=== PATIENT | female | born 1965 | race Caucasian/White ===

== ENCOUNTER 2019-03-28 13:53 | Outpatient (CLI) | payer MEDICAID, SELFPAY ==
[2019-03-28] MEDS: denosumab 60 mg SDV SUBCUT (14:50)
--- NOTE | 2019-03-31 21:04 | ONC FU_ITS ---
Dr. Bonner Patient Follow-Up Note Patient: Catherine Phillips Unit #: [id number]: [id number] Dicatated By: Phill Bonner M.D.Date of Visit:Mar 28, 2019 Onc Med Follow-up/Prog Note Chief Complaint: Breast cancer. History of Present Illness: This is a 53 year-old woman with grade 3 infiltrating ductal carcinoma of the left breast, stage IIB (T2, pN1mi, M0), ER positive/UT negative and HER-2/yoselin positive (3+ by IHC). She had presented with a lump in the left breast. Her initial evaluation included bilateral mammogram and limited ultrasound of the left breast on 06/02/2016. Mammogram showed a somewhat rounded circumscribed mass within the slightly superior and retroareolar left breast measuring 1.0 x 1.0 x 1.9 cm. There was associated retraction of the nipple. Ultrasound showed an irregular spiculated heterogeneous hypochromic and hypervascular mass measuring 1.0 x 1.1 x 1.8 cm located within the 6:00 position of the left breast 2 cm from the nipple. Targeted ultrasound of the left axilla showed no suspicious lymph nodes. Overall, the findings were BI-RADS 5, highly suspicious. She underwent ultrasound directed needle biopsy of the left breast mass on 07/15/2016. Pathology showed grade 2 invasive ductal carcinoma which was ER positive (60% of tumor cells showing moderate intensity staining). The UT was negative at less than 1%. HER-2/yoselin was positive, 3+ by IHC. She was seen by Dr. Shaheen López in [place] on 08/04/2016. After reviewing treatment options, the decision was made to proceed with mastectomy and axillary sentinel lymph node biopsy, as she did not appear to be a good candidate for breast conservation. He had requested cardiology consultation for cardiac clearance prior to the surgery, which did result in some delay in her surgery. Ultimately she did undergo left mastectomy with axillary sentinel lymph node biopsy on 12/23/2016. Pathology showed grade 3 invasive ductal carcinoma measuring 2.8 cm in maximum dimension. The closest margin was the deep margin at 0.4 cm. There was associated ductal carcinoma in situ, grade 3 with comedonecrosis, the largest focus measuring 1.5 cm. The axillary sentinel lymph node biopsy showed 1 lymph node which contained micrometastasis, size of the largest metastatic deposit measuring 1 mm. At that time she also underwent placement of Port-A-Cath venous access device. She began adjuvant TCH chemotherapy, cycle 1 day 1 on 01/17/2017. Side effects included fatigue and painful neuropathy in the lower extremities. She also had severe neutropenia, but with uneventful recovery. Due to the neuropathy and neutropenia, she received a dose reduction with cycle 2 on 02/09/2017. She had increased toxicities despite the dose reduction, severe enough that we opted not to attempt any further chemotherapy. She did agree to continue her Herceptin therapy, and she received cycle 1 of single agent Herceptin on 03/28/2017. Her cycle 2 was delayed, again because of compliance issues, but she did receive cycle 3 on schedule on 05/29/2017. She then continued her single agent Herceptin at the 3-week dosing schedule. She completed her 12th cycle treatment on 12/12/2017. As of May 2017 she also had started adjuvant hormonal therapy with anastrozole 1 mg daily. Her screening DEXA scan on 06/12/2017 had shown a T score of -1.5 the lumbar spine, -1.7 in the left proximal femur and -1.7 in the right proximal femur, consistent with osteopenia. She began treatment with Prolia in March 2018. Her medical history is otherwise significant for hypertension, borderline diabetes, valvular heart disease, asthma, and GERD. She is 4/para 4 with her first at age 19. She underwent natural menopause at age 48. She had no hormone replacement therapy. She is a nonsmoker. INTERIM HISTORY: She is seen for a scheduled visit. She complains that she has been feeling real tired. She is still doing light work. ECOG score is 1. Appetite has been good. She thinks she may have had some fever. She recently has had bad sweating. Since she has had persistent sinus drainage and cough. She says her throat feels like it is blocked off. She is having associated nausea. She has some shortness of breath. She has had a little bit of chest pain off and on. Her bowels fluctuate between constipation and diarrhea. She has urinary frequency and urgency. She is having heavy bone pain all over. She had tried working, but she quit because of pain in her wrists and other joints. She has headache off and on. She has had a few dizzy spells. She has no focal neurologic symptoms. Medications: Anastrozole 1 Tablet (of 1 mg) Oral daily, Citalopram Hydrobromide 1 (20 mg) Tablet Oral daily, Imdur 0.5 (30 mg) Tablet SR 24 HR Oral daily, Lisinopril 1 (20 mg) Tablet Oral daily, Loratadine 1 (10 mg) Tablet Oral every am, Meloxicam 1 Tablet (of 7.5 mg) Oral daily, Propranolol HCl 1 (40 mg) Tablet Oral b.i.d., Protonix 1 Tablet (of 40 mg) Tablet, enteric coated Oral daily, Singulair 1 (10 mg) Tablet Oral at bedtime, Symbicort 2 (80-4.5 mcg/act) Aerosol Inhalation b.i.d. Allergies: EPINEPHrine, Hydrocodone-Acetaminophen, Naproxen, and Zofran. Review of Systems: Constitutional - Her energy is low and she is very tired. She does light work at home. Her appetite is good and her weight is stable. No fever or chills. She has sweating. ECOG score is 1, ENMT - She has sinus congestion/drainage with sore throat and cough. Her symptoms first started around . No mouth sores. No difficulty swallowing, Hematologic/Lymphatic - No abnormal bruising or bleeding, Respiratory - No shortness of breath. No pleuritic pain or hemoptysis, Cardiovascular - She has light chest pain off and on. No palpitations, Gastrointestinal - She has nausea. No vomiting. No heartburn or acid reflux. She has occasional diarrhea. No blood in the stool or black stools, Genitourinary (F) - No dysuria or hematuria. No urinary frequency. She has urgency. No incontinence, Musculoskeletal - She has pain in her wrists, Integumentary - No skin complications, Neurologic - She has headaches off and on. She has had a couple of dizzy spells. No numbness/paresthesias or other focal neurologic symptoms, Psychiatric - No anxiety or depression. She has not been sleeping well since she has been sick. Vital Signs: Performed on Mar 28, 2019 14:14 Height - 64.00 in Weight - 151.2 lbs (LOW) BSA - 1.74 sq.m BMI - 25.95 Temperature - 98.0 F (LOW) Pulse - 68 /min Respiration - 24 /min BP - 160/93 mm(hg) (HIGH) O2 Sat - 97 % Pain - 0 Physical Examination: Constitutional - She looks pretty good generally, Eyes - Sclerae nonicteric. Conjunctivae clear, ENMT - No lesions noted in the oral cavity, Hematologic/Lymphatic - No cervical or clavicular adenopathy, Respiratory - Lungs are clear with good air movement bilaterally, Cardiovascular - Heart rhythm is regular. There is a I/ systolic murmur. There is no gallop or rub noted, Breasts - The right breast shows no mass. There are no lesions noted in the left chest wall. There is no axillary adenopathy noted, Abdomen - Soft. Liver and spleen are not enlarged. There is no abdominal mass or ascites noted and there is no inguinal adenopathy, Extremities - No edema, Neurologic - There are no focal deficits noted. Lab/Imaging: Test performed on Jan 24, 2019 15:10 Ferritin 98.0 ng/ml Iron 71 ug/dL Sodium 134 mmol/L T4, Free 1.67 ng/dL TSH 1.04 uIU/mL Vitamin D (25-Hydroxy), Total 59 ng/mL Potassium 3.7 mmol/L % Iron Saturation 24.8 % Chloride 98 mmol/L CO2 22 mmol/L UIBC 215 ug/dL Anion Gap 17.7 BUN 5 mg/dL Creatinine 0.6 mg/dL Cr Clearance (Est) 107.8800 mL/min eGFR 103.8 mL/min Glucose 97 mg/dl Calcium 9.8 mg/dL Protein, Total 7.4 g/dL Albumin 5.5 g/dL Globulin 1.9 gm/dL Bilirubin, Total 0.5 mg/dL ALT (SGPT) 12 U/L AST (SGOT) 17 U/L Alkaline Phosphatase 51 U/L WBC 4.6 10 3/uL RBC 3.75 10 6/uL HGB 11.5 g/dL HCT 34.1 % MCV 90.9 fl MCH 30.7 pg MCHC 33.7 g/dl RDW 13.4 % Platelet Count 196 10 3/cmm MPV 11.1 fl Neutrophils 2.5 10 3/uL Lymphocytes 1.7 10 3/uL Monocytes 0.3 10 3/uL Eosinophils 0.1 10 3/uL Basophils 0.0 10 3/uL Neutrophil % 54.0 % Lymphocyte % 36.1 % Monocyte % 6.9 % Eosinophil % 2.2 % Basophils % 0.6 % CA 27.29 18.48 U/mL Impression: 1. Patient with grade 3 infiltrating ductal carcinoma of the left breast, stage IIB (T2, pN1mi, M0), ER positive/UT negative and HER-2/yoselin positive. She underwent ultrasound-guided biopsy of left breast mass on 07/15/2016. 2. She underwent left mastectomy with axillary sentinel lymph node biopsy on 12/23/2016. Pathology showed micrometastasis in 1 sentinel lymph node with the largest metastatic deposit measuring 1 mm. The deep surgical margin was 0.4 cm. Her other medical illnesses include: 3. Hypertension. 4. Borderline diabetes. 5. Mild asthma. 6. GERD. 7. She has reported history of valvular heart disease. She began adjuvant TCH chemotherapy, cycle 1 day 1 on 01/17/2017. Side effects include fatigue, neuropathy, and severe neutropenia. She received a second cycle on 02/09/2017. She had more severe toxicities despite the fact that it was administered with a dose reduction. As such, we have opted not to attempt further chemotherapy. She continued with single agent Herceptin, cycle 1 on 03/28/2017. She did have a delay with her 2nd cycle due to compliance issues, but she did receive cycle 3 on schedule on 05/29/2017. At that point she also started adjuvant hormonal therapy with anastrozole 1 mg daily. She had evidence of osteopenia on her baseline bone density study. She continued with single agent Herceptin at 6 mg/kg by IV infusion every 3 weeks. As of 12/12/2017 she had completed her 12th cycle of treatment. She then continued adjuvant hormonal therapy with anastrozole 1 mg daily. In March 2018 she began treatment with Prolia for the osteopenia. During follow-up she continued to have fatigue. She still had some weakness in her legs, but her neuropathy symptoms had otherwise resolved. Initially she seemed to be tolerating the anastrozole with acceptable toxicity. However, since her last visit, her fatigue seems to have worsened, and she definitely has been having significantly more musculoskeletal pain. There appears to be no evidence, though, of recurrence of her breast cancer. Plan: She is advised now to stop the anastrozole. She will be given her scheduled dose of Prolia 60 mg by subcutaneous injection for the osteoporosis. She will be scheduled for a follow-up visit in 1 month. In the meantime, she will start citalopram 20 mg daily for her anxiety/depression. She also will start loratadine 10 mg daily in the morning together with Singulair 10 mg at bedtime for her allergy symptoms. She is being given a flu shot today at her request. Signed By: Phill Bonner M.D. <<Signature on File>>
== END 2019-03-28 13:54 | disposition home or self-care (01) ==
LOC: ONCMED 13:57
PROVIDERS: Family Provider Nurse Practitioner Family; PCP Nurse Practitioner Family; Visit Provider Internal Medicine Medical Oncology
DX: M81.0 Age-related osteoporosis without current pathological fracture (principal); C50.112 Malignant neoplasm of central portion of left female breast; C77.3 Secondary and unspecified malignant neoplasm of axilla and upper limb lymph nodes; Z23 Encounter for immunization; Z45.2 Encounter for adjustment and management of vascular access device; I10 Essential (primary) hypertension; R73.03 Prediabetes; R53.83 Other fatigue; K21.9 Gastro-esophageal reflux disease without esophagitis; F41.8 Other specified anxiety disorders; Z17.0 Estrogen receptor positive status [ER+]; Z79.811 Long term (current) use of aromatase inhibitors; Z90.12 Acquired absence of left breast and nipple; Z92.21 Personal history of antineoplastic chemotherapy; Z92.25 Personal history of immunosuppression therapy
CPT/HCPCS: 90471; 90686; 96372; 96523; 99214; J0897

== ENCOUNTER 2019-05-23 12:59 | Outpatient (CLI) | payer MEDICAID, SELFPAY ==
[2019-05-23 14:56] LABS: Basophils % 0.4 %; Eosinophils # 0.2 10^3/uL (0.0-0.8); Eosinophils % 2.8 %; Hematocrit 33.6 % (37.0-47.0); Hemoglobin 11.1 g/dL (11.5-15.3); Lymphocytes # 1.9 10^3/uL (0.8-4.8); Lymphocytes % 35.4 %; Mean Corpuscular Volume 90.8 fL (81-99); Mean Platelet Volume 11.5 fL (7.4-10.4); Monocytes # 0.3 10^3/uL (0.2-0.9); Monocytes % 6.2 %; Neutrophils # 2.9 10^3/uL (1.8-7.7); Nucleated Red Blood Cells % 0 %; Platelet Count 189 10^3/cmm (130-400); Red Cell Distribution Width 13.2 % (12.1-15.1); White Blood Count 5.3 10^3/uL (4.0-10.0)
[2019-05-23 15:25] LABS: Alanine Aminotransferase 15 U/L (0-33); Albumin Level 4.7 g/dL (3.5-5.2); Alkaline Phosphatase 53 IU/L (35-105); Anion Gap 15.9 (5-19); Aspartate Amino Transferase 17 U/L (0-32); Blood Urea Nitrogen 6 mg/dL (6-20); Calcium 9.7 mg/dL (8.5-10.5); Carbon Dioxide 24 mmol/L (22-29); Chloride 101 mmol/L (98-107); Globulin 2.9 g/dL (1.3-4.6); Glomerular Filtration Rate 103.8 mL/min (90-130); Glucose 94 mg/dL (65-115); Osmolality Calculated 280 mOsm/kg (285-295); Potassium 3.9 mmol/L (3.5-5.1); Sodium 137 mmol/L (136-145); Thyroid Stimulating Hormone 1.25 uIU/mL (0.27-4.20); Total Bilirubin 0.5 mg/dL (0.15-1.2); Total Protein 7.6 g/dL (6.6-8.7)
[2019-05-23 15:33] LABS: 25 Hydroxy Vitamin D 33 ng/mL (30-100)
--- NOTE | 2019-05-26 19:32 | ONC FU_ITS ---
[facility] Patient Note Patient: Catherine Phillips Unit #: [id number]: [id number] Dictated By: Raquel McbrideDate of Visit: May 23, 2019 Onc MED Follow-Up/Prog Note Chief Complaint: .Breast cancer. History of Present Illness: Ms Phillips is a 53 year-old woman with grade 3 infiltrating ductal carcinoma of the left breast, stage IIB (T2, pN1mi, M0), ER positive/DE negative and HER-2/yoselin positive (3+ by IHC). She had presented with a lump in the left breast. Her initial evaluation included bilateral mammogram and limited ultrasound of the left breast on 06/02/2016. Mammogram showed a somewhat rounded circumscribed mass within the slightly superior and retroareolar left breast measuring 1.0 x 1.0 x 1.9 cm. There was associated retraction of the nipple. Ultrasound showed an irregular spiculated heterogeneous hypochromic and hypervascular mass measuring 1.0 x 1.1 x 1.8 cm located within the 6:00 position of the left breast 2 cm from the nipple. Targeted ultrasound of the left axilla showed no suspicious lymph nodes. Overall, the findings were BI-RADS 5, highly suspicious. She underwent ultrasound directed needle biopsy of the left breast mass on 07/15/2016. Pathology showed grade 2 invasive ductal carcinoma which was ER positive (60% of tumor cells showing moderate intensity staining). The DE was negative at less than 1%. HER-2/yoselin was positive, 3+ by IHC. She was seen by Dr. Shaheen López in [place] on 08/04/2016. After reviewing treatment options, the decision was made to proceed with mastectomy and axillary sentinel lymph node biopsy, as she did not appear to be a good candidate for breast conservation. He had requested cardiology consultation for cardiac clearance prior to the surgery, which did result in some delay in her surgery. Ultimately she did undergo left mastectomy with axillary sentinel lymph node biopsy on 12/23/2016. Pathology showed grade 3 invasive ductal carcinoma measuring 2.8 cm in maximum dimension. The closest margin was the deep margin at 0.4 cm. There was associated ductal carcinoma in situ, grade 3 with comedonecrosis, the largest focus measuring 1.5 cm. The axillary sentinel lymph node biopsy showed 1 lymph node which contained micrometastasis, size of the largest metastatic deposit measuring 1 mm. At that time she also underwent placement of Port-A-Cath venous access device. She began adjuvant TCH chemotherapy, cycle 1 day 1 on 01/17/2017. Side effects included fatigue and painful neuropathy in the lower extremities. She also had severe neutropenia, but with uneventful recovery. Due to the neuropathy and neutropenia, she received a dose reduction with cycle 2 on 02/09/2017. She had increased toxicities despite the dose reduction, severe enough that we opted not to attempt any further chemotherapy. She did agree to continue her Herceptin therapy, and she received cycle 1 of single agent Herceptin on 03/28/2017. Her cycle 2 was delayed, again because of compliance issues, but she did receive cycle 3 on schedule on 05/29/2017. She then continued her single agent Herceptin at the 3-week dosing schedule. She completed her 12th cycle treatment on 12/12/2017. As of May 2017 she also had started adjuvant hormonal therapy with anastrozole 1 mg daily. Her screening DEXA scan on 06/12/2017 had shown a T score of -1.5 the lumbar spine, -1.7 in the left proximal femur and -1.7 in the right proximal femur, consistent with osteopenia. She began treatment with Prolia in March 2018. Her medical history is otherwise significant for hypertension, borderline diabetes, valvular heart disease, asthma, and GERD. She is 4/para 4 with her first at age 19. She underwent natural menopause at age 48. She had no hormone replacement therapy. She is a nonsmoker. INTERIM HISTORY: Ms. Phillips is here today for follow-up. She was seen by Dr. Bonner on March 28, 2019. She was having increased muscle skeletal pain. And increased fatigue. Dr. Bonner did advise her to stop anastrozole. She did proceed with the Prolia. He also recommended that she start on citalopram 20 mg daily for anxiety/depression. She was unable to fill the medication as her insurance was not active at the time so therefore she has not started it. She did stop the anastrozole. She states some of the joint pain is better and some of it is not. She states the fatigue is still somewhat of a bother as well to she just does not have the energy that she would like. She states that she can get all of her activities of daily living that but just takes her a while. She is unable to work due to the significant joint pain. Mostly she states is in her back and wrist. She has new onset hip pain that is been there for a couple weeks. She states it bothers her at night and sometimes when she is walking. She denies any fever or chills. She has had no diarrhea or constipation. She denies any further pain. She denies nausea or vomiting. She states she has not had fever chills or had the flu like it is going around . She states she has noticed that she has become more short of breath over the last couple of weeks. She can have a bit of cough. States he has had some wheezing is concerned that her asthma may be acting up. She has not been around anyone else sick. Her ECOG is 2 due to the chronic musculoskeletal pain. Past Medical History: Asthma Diabetes type II (borderline) Gastroesophageal reflux disease Hypertension Valvular heart disease Past Surgical History: Flu vaccine in 2019 Fluvax in 2016 Left breast biopsy and lymph node resection in 2016 Ultrasound-guided biopsy of left breast mass in 2016 Caesarean section in 1996 Allergies: EPINEPHrine, Hydrocodone-Acetaminophen, Naproxen, and Zofran. Medications: Anastrozole 1 Tablet (of 1 mg) Oral daily Citalopram Hydrobromide 1 (20 mg) Tablet Oral daily Imdur 0.5 (30 mg) Tablet SR 24 HR Oral daily Lisinopril 1 (20 mg) Tablet Oral daily Loratadine 1 (10 mg) Tablet Oral every am Meloxicam 1 Tablet (of 7.5 mg) Oral daily Propranolol HCl 1 (40 mg) Tablet Oral b.i.d. Protonix 1 Tablet (of 40 mg) Tablet, enteric coated Oral daily Singulair 1 (10 mg) Tablet Oral at bedtime Symbicort 2 (80-4.5 mcg/act) Aerosol Inhalation b.i.d. Family History: Ms. Phillips's mother at age 59: lung disease. Ms. Phillips's father at age 61: lung cancer. Her paternal grandmother is : Cancer. Ms. Phillips has 1 brother who is alive: diabetes. She has 1 sister who is alive. Father with lung cancer at age 61. Her mother with lung disease age 59. She has one brother who is in good health. Her sister has diabetes. A paternal aunt had ovarian cancer and her paternal grandmother also had cancer, type unknown to the patient. Social History: Ms. Phillips is and she is a disabled. Ms. Phillips has never smoked. She has no history of drinking. She is a nonsmoker. She does not drink alcohol. Review Of Symptoms: Constitutional Denies fevers, chills, night sweats, excessive fatigue or weight loss. Allergic/Immunologic No reactions. Eyes Denies significant visual changes. No diplopia. No amaurosis. ENMT Denies changes in hearing, sore throat, mouth sores, difficulty or changes in swallowing ability, and/or sinus drainage. Endocrine No diabetes, thyroid disease or hormone replacement. Denies hot flashes or night sweats. Hematologic/Lymphatic Denies easy bruising or bleeding. The patient denies any tender or palpable lymph nodes. Breasts no concerns Respiratory Denies dyspnea on exertion, chest pain, cough or hemoptysis. Denies orthopnea. Cardiovascular Denies anginal chest pain, palpitations or orthopnea. Gastrointestinal Denies nausea, vomiting, diarrhea, GI bleeding, or constipation. Denies change in bowel habits and/or stool color, no heartburn or early satiety. Genitourinary (F) No hematuria, hesitancy, incontinence, vaginal bleeding, discharge or other problems with urination. Musculoskeletal multiple areas of joint pain-worse in right wrist but also states it is in her hands, knees and sometimes her back. Integumentary Denies chronic rashes, inflammation, ulcerations or skin changes. Neurologic Denies headache, blurred vision, and no areas of focal weakness or numbness. Normal gait. No sensory problems. Psychiatric Denies insomnia, depression, lidia or mood swings. Vital Signs: Performed on May 23, 2019 13:17 Height - 64.00 in Weight - 154.4 lbs (HIGH) BSA - 1.75 sq.m BMI - 26.50 Temperature - 98.1 F (LOW) Pulse - 57 /min (LOW) Respiration - 18 /min BP - 138/86 mm(hg) O2 Sat - 100 % Pain - 3,1 - No physically strenuous activity, but ambulatory and able to carry out light or sedentary work (e.g. office work, light house work). (ECOG) Physical Examination: Constitutional Alert, oriented, no acute distress. Skin pink, warm and dry. Head Normocephalic; atraumatic, no signs of psoriasis Eyes Conjunctivae and sclerae are clear and without icterus. Pupils are reactive and equal. ENMT No oral exudates, ulcers, masses, thrush or mucositis. Oropharynx clear. Tongue normal. Poor dentation with several missing teeth. Neck Supple without masses or thyromegaly. No jugular venous distension. Hematologic/Lymphatic No petechiae or purpura. No tender or palpable lymph nodes in the cervical or supraclavicular area. Respiratory Lungs are clear to auscultation without rhonchi or wheezing. Cardiovascular Regular rate and rhythm of heart without murmurs,clicks, gallops or rubs. Chest Left subclavian venous access device is unremarkable. Breasts Unremarkable. Abdomen Non-tender, non-distended, no masses, ascites. Good bowel sounds noted in all quads. No guarding or rebound tenderness. No pulsatile masses. Back/Spine Non-tender to palpation. Extremities No visible deformities, no cyanosis, clubbing or edema. Musculoskeletal No tenderness or swelling, normal range of motion without obvious weakness. Integumentary No rashes or lesions. Neurologic No sensory or motor deficits, normal cerebellar function, normal gait. Psychiatric Alert and oriented times three. Coherent speech. Verbalizes understanding of our discussions today. Laboratory:Test performed on May 23, 2019 14:27 Sodium 137 mmol/L TSH 1.25 uIU/mL Vitamin D (25-Hydroxy), Total 33 ng/mL Potassium 3.9 mmol/L Chloride 101 mmol/L CO2 24 mmol/L Anion Gap 15.9 BUN 6 mg/dL Creatinine 0.6 mg/dL Cr Clearance (Est) 107.8800 mL/min eGFR 103.8 mL/min Glucose 94 mg/dL Calcium 9.7 mg/dL Protein, Total 7.6 g/dL Albumin 4.7 g/dL Globulin 2.9 g/dL Bilirubin, Total 0.5 mg/dL ALT (SGPT) 15 U/L AST (SGOT) 17 U/L Alkaline Phosphatase 53 IU/L WBC 5.3 10 3/uL RBC 3.70 10 6/uL HGB 11.1 g/dL HCT 33.6 % MCV 90.8 fL MCH 30.0 pg MCHC 33.0 g/dL RDW 13.2 % Platelet Count 189 10 3/cmm MPV 11.5 fL Neutrophils 2.9 10 3/uL Lymphocytes 1.9 10 3/uL Monocytes 0.3 10 3/uL Eosinophils 0.2 10 3/uL Basophils 0.0 10 3/uL Neutrophil % 55.0 % Lymphocyte % 35.4 % Monocyte % 6.2 % Eosinophil % 2.8 % Basophils % 0.4 % Test performed on Jan 24, 2019 15:10 Ferritin 98.0 ng/ml Iron 71 ug/dL T4, Free 1.67 ng/dL % Iron Saturation 24.8 % UIBC 215 ug/dL CA 27.29 18.48 U/mL Impression: 1. Patient with grade 3 infiltrating ductal carcinoma of the left breast, stage IIB (T2, pN1mi, M0), ER positive/DE negative and HER-2/yoselin positive. She underwent ultrasound-guided biopsy of left breast mass on 07/15/2016. 2. She underwent left mastectomy with axillary sentinel lymph node biopsy on 12/23/2016. Pathology showed micrometastasis in 1 sentinel lymph node with the largest metastatic deposit measuring 1 mm. The deep surgical margin was 0.4 cm. Her other medical illnesses include: 3. Hypertension. 4. Borderline diabetes. 5. Mild asthma. 6. GERD. 7. She has reported history of valvular heart disease. She began adjuvant TCH chemotherapy, cycle 1 day 1 on 01/17/2017. Side effects include fatigue, neuropathy, and severe neutropenia. She received a second cycle on 02/09/2017. She had more severe toxicities despite the fact that it was administered with a dose reduction. As such, we have opted not to attempt further chemotherapy. She continued with single agent Herceptin, cycle 1 on 03/28/2017. She did have a delay with her 2nd cycle due to compliance issues, but she did receive cycle 3 on schedule on 05/29/2017. At that point she also started adjuvant hormonal therapy with anastrozole 1 mg daily. She had evidence of osteopenia on her baseline bone density study. She continued with single agent Herceptin at 6 mg/kg by IV infusion every 3 weeks. As of 12/12/2017 she had completed her 12th cycle of treatment. She then continued adjuvant hormonal therapy with anastrozole 1 mg daily. In March 2018 she began treatment with Prolia for the osteopenia. During follow-up she continued to have fatigue. She still had some weakness in her legs, but her neuropathy symptoms had otherwise resolved. Initially she seemed to be tolerating the anastrozole with acceptable toxicity. However, since her last visit, her fatigue seems to have worsened, and she definitely has been having significantly more musculoskeletal pain. There appears to be no evidence, though, of recurrence of her breast cancer. Plan: 1. Hold anastrozole for 1 more month. She had been on it for almost 2 years. 2. CBC, CMP, TSH and vitamin D level today for evaluation of fatigue and myalgia. She has known osteoporosis. 3. Start citlopram as her insurance is active. 4. Xray of hip/pelvis and chest xray for shortness of breath and cough. We will call her with the xrays and labs when all the reports are in. I did seend in a prescription for meloxicam 7.5 mg daily and diclofenac gel 1% to use prn-if approved via her insurance. 5. Plan for followup in 1 month. 6. Ms Phillips was instructed to call us in the interim if questions or problems arise. 7. I did remind Ms Phillips that she is overdue for her mammogram. She states she plans to gget this done at [facility] as that is where her previous mammograms have been. 8. She will be due for bone density after June 13, 2019. She is being treated for osteoporosis. Signed By: Raquel Mcbride-, [facility] Phill Bonner MD <<Signature on File>>
== END 2019-05-23 13:00 | disposition home or self-care (01) ==
LOC: ONCMED 13:01
PROVIDERS: Family Provider Nurse Practitioner Family; PCP Nurse Practitioner Family; Visit Provider Nurse Practitioner
DX: C50.112 Malignant neoplasm of central portion of left female breast (principal); R53.83 Other fatigue; R06.02 Shortness of breath; J45.20 Mild intermittent asthma, uncomplicated; I10 Essential (primary) hypertension; R73.03 Prediabetes; K21.9 Gastro-esophageal reflux disease without esophagitis; F41.8 Other specified anxiety disorders; G89.29 Other chronic pain; M79.18 Myalgia, other site; I38 Endocarditis, valve unspecified; M81.0 Age-related osteoporosis without current pathological fracture; Z17.0 Estrogen receptor positive status [ER+]; Z78.0 Asymptomatic menopausal state; Z79.811 Long term (current) use of aromatase inhibitors; Z79.899 Other long term (current) drug therapy; Z92.21 Personal history of antineoplastic chemotherapy; Z90.12 Acquired absence of left breast and nipple; Z92.25 Personal history of immunosuppression therapy; Z92.23 Personal history of estrogen therapy
CPT/HCPCS: 36591; 80053; 82306; 84443; 85025; 99214

== ENCOUNTER 2019-05-23 14:46 | Outpatient (CLI) | payer MEDICAID, SELFPAY ==
--- NOTE | 2019-05-23 15:24 | XR_ITS ---
WS: [id number] CHEST 2 VIEWS HISTORY: PERSISTENT COUGH, SHORTNESS OF BREATH, BREAST CANCER COMPARISON: 08/12/2016 Lungs: Nodule at the RIGHT lung base appears to be a nipple shadow. On the lateral projection there a re no pulmonary nodules. There is a Port-A-Cath entering via the LEFT subclavian vein. Tip in the dis kana SVC. Cardiac size: Normal. Mediastinum/Aorta: Normal mediastinum. Bones: Normal. XR/XR chest 2V* [id number] IMPRESSION: 1. Nodule at the RIGHT lung base appears to be a nipple shadow. 2. No pulmonary nodule or mass. No pneumonia.
--- NOTE | 2019-05-23 15:24 | XR_ITS ---
WS: [id number] PELVIS AND BILATERAL HIPS TECHNIQUE: AP pelvis and AP and lateral hips. HISTORY: BILATERAL HIP PAIN AND BREAST CANCER COMPARISON: None available. Pelvis: Symmetric appearance of the bones of the pelvis. No bone destruction. No fractures or signifi cant degenerative disease. Right hip: No significant joint space narrowing. Very subtle lytic area in the proximal RIGHT femur. No corresponding finding on the lateral projection. Otherwise no additional osteoblastic or osteolyt ic disease. Left hip: No significant joint space narrowing. No osteoblastic or osteolytic bone disease. XR/XR hip BI m 5V wo/w pel* [id number] IMPRESSION: 1. Very subtle lytic area in the proximal RIGHT femur. Early metastatic lesion s not excluded. With history of pain consider follow-up bone scan imaging to ev aluate for subtle metastatic lesions. 2. No significant arthritis at the hips.
== END 2019-05-23 14:47 | disposition home or self-care (01) ==
PROVIDERS: Family Provider Nurse Practitioner Family; PCP Nurse Practitioner Family; Visit Provider Nurse Practitioner
DX: M25.552 Pain in left hip (principal); M25.551 Pain in right hip; C50.919 Malignant neoplasm of unspecified site of unspecified female breast; R05 Cough; R06.02 Shortness of breath; R91.1 Solitary pulmonary nodule
CPT/HCPCS: 71046; 73523

== ENCOUNTER → 2022-09-19 11:22 | Outpatient (BNVA) | payer MEDICAID, SELFPAY | PROVIDERS: Family Provider Nurse Practitioner Family; PCP Nurse Practitioner Family; Visit Provider Nurse Practitioner Family | DX: R05.3 Chronic cough (principal); C50.919 Malignant neoplasm of unspecified site of unspecified female breast; I10 Essential (primary) hypertension | CPT/HCPCS: 80053; 80061; 84443 ==

== ENCOUNTER 2022-09-30 12:01 | Outpatient (CLI) | payer MEDICAID, SELFPAY ==
--- NOTE | 2022-09-30 12:43 | XR_ITS ---
WS: [id number] Exam: XR hip BI m 5V wo/w pel* [id number] Date/Time of Exam: 09/30/2022 12:58 PM Reason For Exam: M25.551 - Pain in right hip In the bilateral hips are intact. The joint compartments are well-maintained. Normal bilateral soft t issues. The pelvis is intact. XR/XR hip BI m 5V wo/w pel* [id number] IMPRESSION: 1. Unremarkable bilateral hips.
--- NOTE | 2022-09-30 12:43 | XR_ITS ---
WS: [id number] Exam: XR femur RT min 2V* [id number] Date/Time of Exam: 09/30/2022 12:58 PM Reason For Exam: M79.659 - Pain in unspecified thigh No fractures, soft tissue swelling, or calcifications are noted. The femur is in adequate position. No periosteal reaction is noted. XR/XR femur RT min 2V* [id number] IMPRESSION: Negative right femur.
[2022-09-30 13:09] LABS: Potassium 4.3 mmol/L (3.5-5.1)
--- NOTE | 2022-09-30 13:28 | XR_ITS ---
WS: [id number] Exam: XR chest 2V* [id number] Date/Time of Exam: 09/30/2022 1:31 PM Reason For Exam: R05.3 - Chronic cough Comparison 05/23/2019. The lungs are clear and fully expanded. Normal cardiomediastinal silhouette. No pleural effusions. [place] rgical clips along the left axilla. XR/XR chest 2V* [id number] IMPRESSION: 1. No acute cardiopulmonary finding.
== END 2022-09-30 12:02 | disposition home or self-care (01) ==
PROVIDERS: PCP Nurse Practitioner Family; Visit Provider Nurse Practitioner Family
DX: E87.6 Hypokalemia (principal); M25.551 Pain in right hip; M25.552 Pain in left hip; R05.3 Chronic cough; M79.659 Pain in unspecified thigh
CPT/HCPCS: 36415; 71046; 73523; 73552; 81000; 84132

== ENCOUNTER 2023-05-12 13:43 | Outpatient (CLI) | payer MEDICAID, SELFPAY ==
--- NOTE | 2023-05-12 14:00 | XR_ITS ---
WS: [id number] DEXA (DUAL ENERGY X-RAY ABSORPTIOMETRY) Bone mineral density was performed using a [employer] machine. HISTORY: M81.0 - Age-related osteoporosis without current patholog... COMPARISON: 06/12/2017 Lumbar spine BMD (L1-L4): 1.017 g/cm2 T score: -1.4 Z score: -0.2 Total hip BMD: Left: 0.841 g/cm2. T score: -1.3 Z score: -0.4 Right: 0.861 g/cm2. T score: -1.2 Z score: -0.3 10 year probability of a major osteoporotic fracture is 10.1%. Compared to the prior study from 06/12/2017. Lumbar spine bone mineral density has increased by 2.3%. Bilateral hips bone mineral density has increased by 7.3%. IMPRESSION: OSTEOPENIA based upon the WHO classification for females. Significant increase in bone mineral density within the lumbar spine and hips since the prior study.
== END 2023-05-12 13:44 | disposition home or self-care (01) ==
LOC: RAD 13:43
PROVIDERS: PCP Nurse Practitioner Family; Visit Provider Nurse Practitioner Family
DX: M81.0 Age-related osteoporosis without current pathological fracture (principal)
CPT/HCPCS: 77080